=== PATIENT | male | born 2000 | race Two or more races ===

== ENCOUNTER 2020-09-26 21:37 | Emergency (ER) | payer OTHER ==
--- NOTE | 2020-09-26 22:24 | EDM.PDOC ---
ED HPI GENERAL MEDICAL PROBLEM - General Chief Complaint: Lower Extremity Injury/Pain Stated Complaint: SPLINTER STUCK IN FT Time Seen by Provider: 09/26/20 22:23 Source of Information: Reports: Patient, Family, RN Notes Reviewed History Limitations: Reports: No Limitations - History of Present Illness INITIAL COMMENTS - FREE TEXT/NARRATIVE: Burke presents today for complaints of splinter to right foot from wooden dock [employer]. He reports her removed most of the splinter but feels like there may still be some left in his foot. He is unsure of last tetanus. He denies any other injuries, trauma, fever, chills, nausea, vomiting or other concerns. - Related Data Allergies Allergy/AdvReac Type Severity Reaction Status Date / Time No Known Allergies Allergy Verified 09/26/20 22:04 Home Meds: Home Meds NK [No Known Home Meds] 09/26/20 [History] Social & Family History - Tobacco Use Tobacco Use Status *Q: Never Tobacco User Review of Systems - Review of Systems Review Of Systems: See Below Constitutional: Reports: No Symptoms Eyes: Reports: No Symptoms Ears: Reports: No Symptoms Nose: Reports: No Symptoms Mouth/Throat: Reports: No Symptoms Respiratory: Reports: No Symptoms Cardiovascular: Reports: No Symptoms GI/Abdominal: Reports: No Symptoms Genitourinary: Reports: No Symptoms Musculoskeletal: Reports: Foot Pain (at site of splinter puncture) Skin: Reports: Other (puncture wound right foot) ED EXAM, GENERAL - Physical Exam Exam: See Below Exam Limited By: No Limitations General Appearance: Alert, WD/WN, No Apparent Distress Peripheral Pulses: 4+: Dorsalis Pedis (L), Dorsalis Pedis (R) Extremities: Normal Range of Motion, No Pedal Edema, Normal Capillary Refill, Other (puncture wound plantar surface right foot, small skin tear near site, no drainage, no erythema, no fluctuance.). No: Increased Warmth, Mottled, Pallor, Redness Neurological: Alert, Oriented, Normal Cognition, Normal Gait, Normal Reflexes, No Motor/Sensory Deficits Psychiatric: Normal Affect, Normal Mood Skin Exam: Warm, Dry, No Rash, Other (puncture wound right foot. ). No: Ecchymosis, Erythema, Increased Warmth, Petechiae, Rash Lymphatic: No Adenopathy ED TRAUMA EXTREMITY PROCEDURES - Foreign Body Removal Indication:: Wood splinter Right foot Consent Obtained: Patient Performing Doctor:: Anusha Conrad (No foreign body identified with wound exploration and magnification. Dr. Harrison performed bedside US, no foreign body identified. ) Anesthesia Type: Local Findings:: US per Complications:: No Comments:: Patient tolerated well. Wound cleansed with soap and water, bacitracin and bandaid applied. Tetanus updated. Patient provided ibuprofen and cephalexin to take as directed. Patient education provided on signs of worsening infection. He verbalizes understanding. Course - Vital Signs Last Recorded V/S: Last Vital Signs Temp 36.4 C 09/26/20 22:06 Pulse 74 09/26/20 22:06 Resp 16 09/26/20 22:06 BP 134/80 09/26/20 22:06 Pulse Ox 96 09/26/20 22:06 - Orders/Labs/Meds Orders: Active Orders 24 hr Category Date Time Status Vaccines to be Administered [RC] PER UNIT ROUTINE Care 09/26/20 22:34 Active Meds: Medications Discontinued Medications Generic Name Dose Route Start Last Admin Trade Name Iglesia PRN Reason Stop Dose Admin Bacitracin 1 dose 09/26/20 22:35 09/26/20 22:41 Bacitracin Oint 1 Gm U/D Packet TOP 09/26/20 22:36 1 dose ONETIME ONE Administration Diphtheria/Tetanus/Acell Pertussis 0.5 ml 09/26/20 22:33 09/26/20 22:41 Diphtheria,Pertussis(Acell),Tetanus Vaccine 0.5 Ml Syringe IM 09/26/20 22:34 0.5 ml .ONCE ONE Administration Ibuprofen 800 mg 09/26/20 23:02 Ibuprofen 800 Mg Tab PO 09/26/20 23:03 ONETIME ONE Lidocaine/Epinephrine 2 ml 09/26/20 22:33 09/26/20 22:40 Lidocaine 1% With Epinephrine 1:100,000 50 Ml Mdv INFILT 09/26/20 22:34 2 ml NOW STA Administration Departure - Departure Time of Disposition: 22:58 Disposition: Home, Self-Care 01 Condition: Good Clinical Impression: Splinter - Discharge Information *PRESCRIPTION DRUG MONITORING PROGRAM REVIEWED*: No *COPY OF PRESCRIPTION DRUG MONITORING REPORT IN PATIENT GISELLE: No Instructions: Puncture Wound, [id number] Referrals: FLORES,MELARA,EVELYN [Other] Forms: ED Department Discharge Additional Instructions: You have been evaluated and treated for wood splinter of right foot. Keep wound clean and dry Cover when walking and working, leave open to air when resting. Bactracin twice a day Can take cephalexin twice per day if signs of infection develop. Follow up if any worsening, issues or concerns. Sepsis Event Note (ED) - Evaluation Sepsis Screening Result: No Definite Risk - Focused Exam Vital Signs: Vital Signs Temp Pulse Resp BP Pulse Ox 09/26/20 22:06 36.4 C 74 16 134/80 96 09/26/20 22:03 36.4 C 74 16 134/80 96 - My Orders Last 24 Hours: My Active Orders 09/26/20 22:34 Vaccines to be Administered [RC] PER UNIT ROUTINE - Assessment/Plan Last 24 Hours: My Active Orders 09/26/20 22:34 Vaccines to be Administered [RC] PER UNIT ROUTINE Assessment:: Splinter - right foot (wood) Plan: Patient evaluated and treated for wood splinter of Right foot. Keep wound clean and dry Cover when walking and working, leave open to air when resting. Bactracin twice a day Can take cephalexin twice per day if signs of infection develop. Follow up if any worsening, issues or concerns.
[2020-09-26] MEDS ORDERED: Diphtheria,Pertussis(Acell),Tetanus Vaccine 0.5 ML Syringe IM ONE (22:33)
[2020-09-26] MEDS ORDERED: Lidocaine 1% with EPINEPHrine 1:100,000 50 ML MDV INFILT STA (22:33)
[2020-09-26] MEDS ORDERED: Bacitracin Oint 1 GM U/D Packet TOP ONE (22:35)
[2020-09-26] MEDS ORDERED: Ibuprofen 800 MG Tab PO ONE (23:02)
== END 2020-09-26 23:12 | disposition home or self-care (01) ==
LOC: JP.ED 21:37
DX: S91.341A Puncture wound with foreign body, right foot, initial encounter (principal); Z23 Encounter for immunization; W45.8XXA Other foreign body or object entering through skin, initial encounter
CPT/HCPCS: 90471; 90715; 99283; A9270